=== PATIENT | female | born 1980 | race Caucasian/White ===

== ENCOUNTER 2016-09-03 23:37 | Emergency (ER) | payer OTHER ==
[~2016-09-03] VITALS: Ht 162.6 cm; Wt 101.6 kg
[~2016-09-03 23:37] MED LIST: DIFLUCAN100 MG PO; MOTRIN 800MG T800 MG PO; PERCOCET 325 MG1 TA2 PO; PRENATAL1 TA2 PO
--- NOTE | 2016-09-04 00:57 | ED CARDIAC/CP/PALPITATIONS ---
History of Present Illness General Chief Complaint: Chest Pain Stated Complaint: CHEST AND LEFT ARM PAIN Source: patient, family Exam Limitations: no limitations Vital Signs & Intake/Output Vital Signs & Intake/Output Vital Signs Date Time Temp Pulse Resp B/P B/P Pulse O2 O2 Flow FiO2 Mean Ox Delivery Rate 09/04 0217 98.2 72 19 122/79 100 Room Air 09/04 0015 98.5 77 18 119/81 99 Room Air ED Intake and Output 09/04 0000 09/03 1200 Intake Total Output Total Balance Patient 224 lb Weight Weight Reported by Patient Measurement Method Allergies Coded Allergies: NO KNOWN ALLERGIES (07/14/15) Reconcile Medications OXYCODONE HCL/ACETAMINOPHEN (Percocet 5-325 MG Tablet) 325 MG/5 MG TAB 2 TAB PO Q6P PRN PAIN SCALE 5-10 PNV95/FERROUS FUMARATE/FA ( Formula Tablet) 1 TAB TAB 1 TAB PO DAILY (Reported) Yibuprofen (Motrin 800MG Tab) 800 MG TAB 800 MG PO Q6P PRN PAIN SCALE 4-6 Triage Note: PT TO ED C/O LEFT SIDE CHEST PAIN CONSTANT FOR 7 HRS. FELT BETTER AFTER DINNER, "BUT THEN IT CAME BACK AND WENT TO CENTER CHEST A COUPLE OF TIMES" PAIN GOES DOWN LEFT ARM. C/O SOB, EVEN AT REST. DOES NOT TaKE CONTROL. PMH OF ANXIETY, FEELS ANXIOUS. DIZZINESS WAS WORSE EARLIER, SLIGHT DIZZINESS AT THIS TIME. C/O HEADACHE Triage Nurses Notes Reviewed? yes Onset: Abrupt Duration: waxing and waning (last several hours) Timing: multiple episodes today Quality/Severity: moderate Activities at Onset: SITTING IN A/C PLACE Associated Symptoms: ANXIETY : No Patient currently breastfeeds: No HPI: This is a 36-year-old female with no significant past medical history who presents to the ER with chief complaint of left-sided chest pain associated with some posterior neck pain and some short of breath. She states that she was at an event all day long sitting down in air-conditioned building. When she got home she felt some pains of left-sided chest pain. She states that last approximately half an hour. It then with away. Later on the evening she started to have similar symptoms again. She states she has a history of anxiety and she thinks it may have increased after she became worried about her symptoms. The patient is a nonsmoker nondrinker. No personal history of blood clotting disorders. She does not use any control pills. Past History Travel History Traveled to [place] past 21 day No Medical History Any Pertinent Medical History? 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 No Review of Systems Review of Systems Constitutional: Denies: chills, fever. EENTM: Reports: no symptoms. Respiratory: Reports: short of breath. Cardiovascular: Reports: chest pain. GI: Denies: abdominal pain, diarrhea, vomiting. Genitourinary: Reports: no symptoms. Musculoskeletal: Reports: no symptoms. Skin: Reports: no symptoms. Neurological/Psychological: Reports: anxiety. Hematologic/Endocrine: Denies: bruising, bleeding, polyuria, polydipsia. Immunologic/Allergic: Denies: splenectomy. All Other Systems: Reviewed and Negative Physical Exam Physical Exam General Appearance: well developed/nourished, alert, awake, anxious, mild distress Head: atraumatic, normal appearance Eyes: Bilateral: normal appearance, PERRL, EOMI. Ears, Nose, Throat: normal pharynx, hearing grossly normal Neck: normal inspection, supple, full range of motion Respiratory: normal breath sounds, chest non-tender, no respiratory distress Cardiovascular: regular rate/rhythm Peripheral Pulses: 2+ radial (R), 2+ radial (L) Gastrointestinal: normal bowel sounds, soft, non-tender Extremities: normal inspection, normal capillary refill, normal range of motion, no edema Neurologic/Psych: no motor/sensory deficits, awake, alert, oriented x 3 Skin: intact, normal color, warm/dry Core Measures ACS in differential dx? Yes ASA ordered for poss ACS? No-ACS ruled out Severe Sepsis Present: No Septic Shock Present: No Progress Differential Diagnosis: AMI, aortic dissection, costochondritis, musculoskeletal pain, myocarditis, pericarditis, pneumonia, pneumothorax, PLEURISSY Plan of Care: Orders Procedure Date/time Status D-DIMER 09/04 0106 Complete TROPONIN LEVEL 09/04 36 Complete PROTHROMBIN TIME 09/04 36 Complete COMPREHENSIVE METABOLIC PANEL 09/04 36 Complete CBC WITHOUT DIFFERENTIAL 09/04 36 Complete EKG 09/03 2338 Active Current Medications Sig/Isi Start time Last Medication Dose Stop Time Status Admin Ibuprofen 600 MG ONCE ONE 09/04 229 UNVr (Motrin) 09/04 023 Laboratory Tests 09/04/16 0112: PT 11.3, INR 1.08 09/04/16 0112: Anion Gap 13, Estimated GFR > 60, BUN/Creatinine Ratio 21.4, Glucose 98, Calcium 8.9, Total Bilirubin 0.6, AST 18, ALT 36, Alkaline Phosphatase 112, Troponin I < 0.01, Total Protein 7.4, Albumin 4.0, Globulin 3.4, Albumin/Globulin Ratio 1.2, D-Dimer < 200, CBC w Diff NO MAN DIFF REQ, RBC 4.06 L, MCV 89.6, MCH 31.4 H, RDW 12.6, MPV 8.6, Gran % 64.7, Lymphocytes % 24.2, Monocytes % 9.2, Eosinophils % 1.6, Basophils % 0.3, Absolute Granulocytes 7.1 H, Absolute Lymphocytes 2.6, Absolute Monocytes 1.0 H, Absolute Eosinophils 0.2, Absolute Basophils 0, PUBS MCHC 35.0 LABS, EKG, IBUPROFEN ORDERED. LABS, TROPONIN, D-DIMER NEGATIVE. IMPROVED SYMPTOMS AFTER IBUPROFEN. (SHEREE AMAYA,TRENT) Initial ED EKG: NSR Departure Departure Time of Disposition: 225 Disposition: HOME OR SELF CARE Condition: Stable Clinical Impression Primary Impression: Chest pain Referrals: MARIA DOLORES AMAYA,ALFREDO Rhodes (PCP/Family) Additional Instructions: Take ibuprofen as needed for pain. Please follow-up with her primary care doctor in the office. Blood work today in the emergency Department was within normal limits. Return to the ER for any changing or worsening symptoms. Departure Forms: Customer Survey General Discharge Information Critical Care Note Critical Care Note Critical Care Time: non-applicable
[2016-09-04 01:33] LABS: ABSOLUTE BASOPHIL COUNT 0 /CUMM (0.0-0.2); ABSOLUTE EOSINOPHIL COUNT 0.2 /CUMM (0.0-0.7); ABSOLUTE GRANULOCYTE CT 7.1 /CUMM (1.4-6.5); ABSOLUTE LYMPH COUNT 2.6 /CUMM (1.2-3.4); BASOPHIL % 0.3 % (0.0-2.0); EOSINOPHIL % 1.6 % (0-5); GRANULOCYTE % 64.7 % (42.2-75.2); HEMATOCRIT 36.3 % (37-47); MEAN CORPUSCULAR HGB 31.4 PG (27.0-31.0); MEAN CORPUSCULAR VOLUME 89.6 FL (81.0-99.0); MEAN PLATELET VOLUME 8.6 FL (7.4-10.4); PLATELET COUNT 309 /CUMM (130-400); RBC DISTRIBUTION WIDTH 12.6 % (11.5-14.5); RED BLOOD CELL CT 4.06 /CUMM (4.20-5.40); WHITE BLOOD CELL COUNT 10.9 /CUMM (4.8-10.8)
[2016-09-04 01:42] LABS: PT 11.3 SEC (9.4-12.5)
[2016-09-04 02:33] VITALS: BP 115/69
== END 2016-09-04 02:36 ==
LOC: ERH 23:37
PROVIDERS: Physician Assistant Medical
DX: R07.9 Chest pain, unspecified (principal)
CPT/HCPCS: 93005; 93010

== ENCOUNTER 2017-06-01 03:26 | Emergency (ER) | payer OTHER ==
[~2017-06-01] VITALS: Ht 162.6 cm; Wt 108.9 kg
[~2017-06-01 03:26] MED LIST changes: +BIOTIN2500 MCG PO; +MULTIVITAMINS1 EAC9 PO; +SERTRALINE HCL100 MG PO; +VITAMIN B-121000 MC3 PO; +VITAMIN D2000 UNIT PO; +ZOFRAN ODT4 M1 SL
[2017-06-01 03:38] VITALS: BP 131/84
--- NOTE | 2017-06-01 03:45 | ED CARDIAC/CP/PALPITATIONS ---
History of Present Illness General Chief Complaint: Chest Pain Stated Complaint: "CHEST PAIN RADIATES TO LT ARM/ HEADACHE" Source: patient, old records Exam Limitations: no limitations Vital Signs & Intake/Output Vital Signs & Intake/Output Vital Signs Date Time Temp Pulse Resp B/P B/P Pulse O2 O2 Flow FiO2 Mean Ox Delivery Rate 06/01 0340 Room Air 06/01 0338 98.0 78 18 131/84 Allergies Coded Allergies: No Known Allergies (06/01/17) Reconcile Medications Biotin (Unknown Strength) CAPSULE (Unknown Dose) PO DAILY SUPPLEMENT ( Reported) Cholecalciferol (Vitamin D3) (Vitamin D) (Unknown Strength) CAPSULE (Unknown Dose) PO DAILY SUPPLEMENT (Reported) Multiple Vitamin (Multivitamins) 1 EACH TABLET 1 TAB PO DAILY SUPPLEMENT ( Reported) Sertraline HCl 100 MG TABLET 50 MG PO DAILY ANXIETY (Reported) Triage Note: TRIAGE: PATIENT TO ER FROM HOME REPORTING CP AND L ARM PAIN SINCE 1AM, CONSTANT 7/10, +NAUSEA AND REPORTING "STOMACH ALSO BOTHERING ME." REPORTS COUGHING PAST FEW DENIES THOUGH DENIES COUGH TONIGHT, +SOB, NO ACUTE RESP DISTRESS NOTED, SPEECH CLEAR. EKG IN PROGRESS. Triage Nurses Notes Reviewed? yes : No Patient currently breastfeeds: No HPI: Patient was awoken at 1:00 in the morning with a sharp stabbing pain in her left anterior chest that radiates to her left arm. Pain is constant. The pain increases with deep breath. Patient denies any shortness of breath. She rates the pain at a 6 out of 10. Past History Travel History Traveled to [place] past 21 day No Medical History Any Pertinent Medical History? 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 No Review of Systems Review of Systems Constitutional: Reports: no symptoms. EENTM: Reports: no symptoms. Respiratory: Reports: no symptoms. Cardiovascular: Reports: see HPI, chest pain. GI: Reports: no symptoms. Genitourinary: Reports: no symptoms. Musculoskeletal: Reports: no symptoms. Skin: Reports: no symptoms. Neurological/Psychological: Reports: no symptoms. Hematologic/Endocrine: Reports: no symptoms. Immunologic/Allergic: Reports: no symptoms. All Other Systems: Reviewed and Negative Physical Exam Physical Exam General Appearance: well developed/nourished, alert, awake, anxious, mild distress Head: atraumatic, normal appearance Eyes: Bilateral: PERRL, EOMI. Ears, Nose, Throat: normal pharynx, normal ENT inspection, hearing grossly normal Neck: normal inspection, supple, full range of motion Respiratory: normal breath sounds, no respiratory distress, lungs clear, TENDER TO PALP Cardiovascular: regular rate/rhythm, normal peripheral pulses Gastrointestinal: normal bowel sounds, soft, non-tender Back: normal inspection, normal range of motion Extremities: normal inspection, normal capillary refill, normal range of motion, no edema Neurologic/Psych: no motor/sensory deficits, awake, alert, oriented x 3, normal gait, normal mood/affect Skin: intact, normal color, warm/dry Lymphatic: no anterior cervical kamar Core Measures ACS in differential dx? No CVA/TIA Diagnosis No Sepsis Present: No Sepsis Focused Exam Completed? No Progress Differential Diagnosis: AMI, cholecystitis, costochondritis, hyperthyroid, musculoskeletal pain, myocarditis, pericarditis, pulmonary embolism Plan of Care: Orders Procedure Date/time Status TROPONIN LEVEL 06/01 034 Complete HUMAN BETA HCG SCREEN 06/01 034 Complete D-DIMER 06/01 034 Complete COMPREHENSIVE METABOLIC PANEL 06/01 034 Complete CBC WITHOUT DIFFERENTIAL 06/01 340 Complete EKG 06/01 0328 Active Laboratory Tests 06/01/17 0351: Anion Gap 14, Estimated GFR > 60, BUN/Creatinine Ratio 32.0 H, Glucose 100 H, Calcium 8.8, Total Bilirubin 0.4, AST 30, ALT 42, Alkaline Phosphatase 153 H, Troponin I < 0.01, Total Protein 7.3, Albumin 4.1, Globulin 3.2, Albumin/ Globulin Ratio 1.3, Total Beta HCG NEGATIVE, D-Dimer High Sensitivty < 200, CBC w Diff NO MAN DIFF REQ, RBC 4.27, MCV 90.2, MCH 30.9, MCHC 34.3, RDW 12.6, MPV 8.5, Gran % 69.5, Lymphocytes % 20.5, Monocytes % 7.0, Eosinophils % 2.5, Basophils % 0.5, Absolute Granulocytes 6.8 H, Absolute Lymphocytes 2.0, Absolute Monocytes 0.7 H, Absolute Eosinophils 0.2, Absolute Basophils 0 Initial ED EKG: NSR, no ST T wave changes Prior EKG: unchanged Departure Departure Disposition: HOME OR SELF CARE Condition: Stable Clinical Impression Primary Impression: Chest pain, unspecified Qualifiers: Chest pain type: other chest pain Qualified Code: R07.89 - Other chest pain Referrals: Neelima AMAYA,Reji Cruz MD,Veronica Rhodes (PCP/Family) Additional Instructions: FOLLOW UP WITH DR. HYDE RETURN IF SYMPTOMS WORSEN OR FOR ANY CONCERNS Departure Forms: Customer Survey General Discharge Information Prescriptions: Current Visit Scripts Cyclobenzaprine HCl 1 TAB PO Q8P #20 TAB Critical Care Note Critical Care Note Critical Care Time: non-applicable
[2017-06-01 04:05] LABS: ABSOLUTE BASOPHIL COUNT 0 /CUMM (0.0-0.2); ABSOLUTE EOSINOPHIL COUNT 0.2 /CUMM (0.0-0.7); ABSOLUTE GRANULOCYTE CT 6.8 /CUMM (1.4-6.5); ABSOLUTE MONOCYTE COUNT 0.7 /CUMM (0.10-0.60); BASOPHIL % 0.5 % (0.0-2.0); EOSINOPHIL % 2.5 % (0-5); GRANULOCYTE % 69.5 % (42.2-75.2); HEMATOCRIT 38.5 % (37-47); MEAN CORPUSCULAR HGB 30.9 PG (27.0-31.0); MEAN CORPUSCULAR HGB CONC 34.3 G/DL (33.0-37.0); MEAN CORPUSCULAR VOLUME 90.2 FL (81.0-99.0); MEAN PLATELET VOLUME 8.5 FL (7.4-10.4); PLATELET COUNT 330 /CUMM (130-400); RBC DISTRIBUTION WIDTH 12.6 % (11.5-14.5); RED BLOOD CELL CT 4.27 /CUMM (4.20-5.40); WHITE BLOOD CELL COUNT 9.8 /CUMM (4.8-10.8)
[2017-06-01] MEDS ORDERED: CYCLOBENZAPRINE10 M1 PO (04:51)
== END 2017-06-01 04:57 ==
LOC: ERH 03:26
PROVIDERS: Emergency Medicine
DX: R07.9 Chest pain, unspecified (principal)
CPT/HCPCS: 93005; 93010; 96372; J1885

== ENCOUNTER → 2017-08-29 | Day surgery (SDC) | payer OTHER ==
[~2017-08-29] VITALS: Ht 162.6 cm; Wt 106.6 kg
[~2017-08-29] MED LIST changes: +CYCLOBENZAPRINE10 M1 PO
--- NOTE | 2017-08-29 15:52 | Operative Report ---
Operative/Inv Procedure Report Surgery Date: 08/29/17 Name of Procedure: Suction dilation and curettage for termination of Pre-Operative Diagnosis: Undesired Post-Operative Diagnosis: Same Estimated Blood Loss: less than 50ml Surgeon/Equipment Oiler: Vernon Ramirez MD Anesthesia: local monitored anesthesi, block Specimens: Products of conception Complications: None Condition: Stable Operative/Procedure Note Note: The patient was taken to the operating room and placed in dorsal supine position. Gen. anesthesia was obtained without difficulty. The patient was then placed in dorsal lithotomy position. She was prepped and draped in the usual sterile fashion. A sterile speculum was then placed in the patient's vagina. Single-tooth tenaculum was then applied to the anterior lip of the cervix. A paracervical block with 1% lidocaine was then performed. The cervix was serially dilated to accommodate a 9 mm suction curet. Suction tubing was then attached to the curet and the suction device was then activated. The curet was rotated to clear the uterus of all products of conception. 2 passes with the suction curette were performed. Sharp curettage was then gently performed until a gritty texture was noted in all 4 quadrants of the uterus. The suction curet was then reinserted into the patient's uterus and activated to clear the uterus of all remaining clots and debris. A small amount of bleeding was noted from the site of the tenaculum application. A 0 Vicryl [id number] stitch was then applied and excellent hemostasis was noted. All instruments were then removed from the patient's vagina. All counts were reported to be correct 2. The patient was taken to the recovery room in stable condition. Findings: A moderate amount of products of conception Discharge Disposition: Same Day Admissions
== END ==
LOC: STS 02:54
DX: Z33.2 Encounter for elective termination of pregnancy (principal); Z64.0 Problems related to unwanted pregnancy; E66.9 Obesity, unspecified; Z68.41 Body mass index [BMI] 40.0-44.9, adult
CPT/HCPCS: J2250